=== PATIENT | male | born 1995 | race American Indian/Alaskan Native ===

== ENCOUNTER 2017-10-17 21:35 | Emergency (ER) | payer SELFPAY | END 2017-10-17 21:39 | disposition left against medical advice (07) | LOC: ED 21:35 | DX: E87.2 Acidosis (principal); Z53.21 Procedure and treatment not carried out due to patient leaving prior to being seen by health care provider ==

== ENCOUNTER 2020-01-05 21:07 | Emergency (ER) | payer SELFPAY ==
--- NOTE | 2020-01-05 23:14 | XRay Report ---
LUMBAR SPINE AP AND LATERAL VIEWS INDICATION / CLINICAL INFORMATION: back pain. COMPARISON: None available. FINDINGS: BONES/JOINT(S): No acute fracture or subluxation. No significant degenerative changes. SOFT TISSUES: No significant abnormality. ADDITIONAL FINDINGS: None. Signer Name: Aashish Johnson MD Signed: 01/05/2020 11:09 PM Workstation Name: [id number]
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
[2020-01-06 01:09] VITALS: BP 125/78
== END 2020-01-06 00:23 | disposition home or self-care (01) ==
LOC: ED 21:07
DX: S39.012A Strain of muscle, fascia and tendon of lower back, initial encounter (principal); E11.9 Type 2 diabetes mellitus without complications; F17.200 Nicotine dependence, unspecified, uncomplicated; V89.2XXA Person injured in unspecified motor-vehicle accident, traffic, initial encounter; Y93.89 Activity, other specified; Y92.410 Unspecified street and highway as the place of occurrence of the external cause; Y99.8 Other external cause status
CPT/HCPCS: 72100; 99283